=== PATIENT | male | born 1995 | race Caucasian/White ===

== ENCOUNTER 2018-05-26 06:28 | Emergency (ER) | payer OTHER ==
[~2018-05-26] VITALS: Ht 175.3 cm; Wt 99.7 kg
[2018-05-26 06:38] VITALS: TEMP 36.9; O2SAT 98; Ht 175.3 cm; Wt 99.7 kg
[2018-05-26 06:52] LABS: BASO % 0.7 %; BASO ABS # 0.04 K/uL (0-0.2); EOS % 2.2 %; EOS ABS # 0.12 K/uL (0-0.5); HEMATOCRIT 45.7 % (42-52); HEMOGLOBIN 16.1 g/dL (14.0-18.0); IG# 0.02 K/uL (0.00-0.02); LYMPH % 45.5 %; LYMPH ABS # 2.52 K/uL (1.2-3.4); MEAN CELL VOLUME 84.9 fL (80-100); MEAN CORPUSCULAR HEMOGLOBIN 29.9 pg (25-34); MEAN CORPUSCULAR HGB CONC 35.2 g/dl (32-36); MEAN PLATELET VOLUME 11.9 fL (7.4-10.4); MONO % 10.6 %; MONO ABS # 0.59 K/uL (0.11-0.59); NEUT % 40.6 %; NEUT ABS # 2.25 K/uL (1.4-6.5); PLATELET COUNT 183 K/uL (130-400); RED CELL DISTRIBUTION WIDTH CV 12.7 % (11.5-14.5); RED CELL DISTRIBUTION WIDTH SD 38.7 fL (36.4-46.3); WHITE BLOOD COUNT 5.54 K/uL (4.8-10.8)
[2018-05-26] MEDS ORDERED: KETOROLAC TROMETHAMINE 30 MG/ML VIAL IV STA (06:52)
[2018-05-26] MEDS ORDERED: ONDANSETRON INJ 2 MG/ML 2 ML VIAL IV STA (06:52)
[2018-05-26] MEDS ORDERED: SODIUM CHLORIDE 0.9% 1000ML 1,000 ML IV STA (06:52)
--- NOTE | 2018-05-26 06:58 | EMERGENCY ROOM VISIT NOTE ---
History Report prepared by Dao: Savage Dupree Under the Supervision of: Dr. Santo Leonard M.D. First contact with patient: 06:37 Chief Complaint: CHEST PAIN Stated Complaint: CHEST PAIN History of Present Illness The patient is a 22 year old male who presents to the Emergency Room with complaints of worsening chest pain that began 3 and a half hours ago. Patient states the pain is located in the center of his chest. He describes the pain as sharp and burning. He states the pain is an 8/10 in severity. He adds the pain is worsened when he lies down. Patient adds that he vomited this morning on his way to work. Patient denies a history of similar symptoms. He adds he felt fine prior to the symptoms coming on. 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 Patient denies a history of cancer, blood clots in his legs or lungs, and tick bites. He denies a family history of cardiac problems. Patient denies smoking and drug use. He adds he is a social drinker. Patient denies leg swelling, chills, recent colds, sore throat , cough, congestion, fevers, diarrhea, urinary symptoms, and abdominal pain. Source of History: patient Onset: 3 and a half hours ago Position: chest Symptom Intensity: 8/10 Quality: burning, sharp Timing: worsening Modifying Factors (Worsening): other (Lying down) Modifying Factors (Relieving): other (None) Associated Symptoms: + vomiting, No fevers, No chills, No sorethroat, No cough, No abdominal pain, No diarrhea, No urinary symptoms Note: Negative leg swelling, recent colds, and congestion. Review of Systems See HPI for pertinent positives and negatives. A total of ten systems were reviewed and were otherwise negative. Past Medical & Surgical Social History Problems: (1) Social alcohol use Family History Patient reports no known family medical history. Social History Smoking Status: Never Smoker Drug Use: none Occupation Status: employed Current/Historical Medications Scheduled Ondasetron Odt (Zofran Odt), 4 MG SL Q6H Scheduled PRN Ibuprofen Tab (Motrin), 800 MG PO Q8H PRN for Pain Allergies Coded Allergies: Sulfa Antibiotics (Verified Allergy, Unknown, SHORTNESS OF BREATH, 05/26/18 ) Physical Exam Vital Signs Date Time Temp Pulse Resp B/P (MAP) Pulse Ox O2 Delivery O2 Flow Rate FiO2 05/26/18 08:08 67 18 109/54 98 Room Air 05/26/18 07:09 68 18 128/76 98 Room Air 05/26/18 06:42 74 05/26/18 06:38 98 Room Air 05/26/18 06:38 98 Room Air 05/26/18 06:38 36.9 72 20 134/76 99 Room Air Physical Exam GENERAL: Awake, alert, uncomfortable, fatigued-appearing, in no distress HENT: Normocephalic, atraumatic. Oropharynx unremarkable. Mucous membranes are dry. EYES: Normal conjunctiva. Sclera non-icteric. NECK: Supple. No nuchal rigidity. FROM. No JVD. RESPIRATORY: Clear to auscultation. CARDIAC: Regular rate, normal rhythm. Extremities warm and well perfused. Pulses equal. ABDOMEN: Soft, non-distended. No tenderness to palpation. No rebound or guarding. No masses. RECTAL: Deferred. MUSCULOSKELETAL: Mild right anterior chest wall and sternal tenderness. Increased pain when lying supine. The back is symmetrical on inspection without obvious abnormality. There is no CVA tenderness to palpation. No joint edema. LOWER EXTREMITIES: Calves are equal size bilaterally and non-tender. No edema. No discoloration. NEURO: Normal sensorium. No sensory or motor deficits noted. SKIN: No rash or jaundice noted. Medical Decision & Procedures ER Provider Diagnostic Interpretation: Radiology results as stated below per my review and radiologist interpretation: CHEST ONE VIEW PORTABLE HISTORY: 22 years-old Male CHEST PAIN acute atypical chest pain COMPARISON: None available TECHNIQUE: Portable AP view of the chest FINDINGS: Cardiomediastinal and hilar silhouettes are within normal limits. No pneumothorax, pleural effusion, focal airspace consolidation or overt pulmonary edema. Bones of the chest appear grossly intact. IMPRESSION: No acute process. The above report was generated using voice recognition software. It may contain grammatical, syntax or spelling errors. Electronically signed by: Lorenzo Brooks M.D. 05/26/2018 7:14 AM Laboratory Results 05/26/18 06:11 Red Blood Count 5.38, Mean Corpuscular Volume 84.9, Mean Corpuscular Hemoglobin 29.9, Mean Corpuscular Hemoglobin Concent 35.2, Mean Platelet Volume 11.9, Neutrophils (%) (Auto) 40.6, Lymphocytes (%) (Auto) 45.5, Monocytes (%) (Auto) 10.6, Eosinophils (%) (Auto) 2.2, Basophils (%) (Auto) 0.7, Neutrophils # (Auto ) 2.25, Lymphocytes # (Auto) 2.52, Monocytes # (Auto) 0.59, Eosinophils # (Auto ) 0.12, Basophils # (Auto) 0.04 05/26/18 06:11 Test 05/26/18 06:11 White Blood Count 5.54 K/uL (4.8-10.8) Red Blood Count 5.38 M/uL (4.7-6.1) Hemoglobin 16.1 g/dL (14.0-18.0) Hematocrit 45.7 % (42-52) Mean Corpuscular Volume 84.9 fL (80-100) Mean Corpuscular Hemoglobin 29.9 pg (25-34) Mean Corpuscular Hemoglobin Concent 35.2 g/dl (32-36) Platelet Count 183 K/uL (130-400) Mean Platelet Volume 11.9 fL (7.4-10.4) Neutrophils (%) (Auto) 40.6 % Lymphocytes (%) (Auto) 45.5 % Monocytes (%) (Auto) 10.6 % Eosinophils (%) (Auto) 2.2 % Basophils (%) (Auto) 0.7 % Neutrophils # (Auto) 2.25 K/uL (1.4-6.5) Lymphocytes # (Auto) 2.52 K/uL (1.2-3.4) Monocytes # (Auto) 0.59 K/uL (0.11-0.59) Eosinophils # (Auto) 0.12 K/uL (0-0.5) Basophils # (Auto) 0.04 K/uL (0-0.2) RDW Standard Deviation 38.7 fL (36.4-46.3) RDW Coefficient of Variation 12.7 % (11.5-14.5) Immature Granulocyte % (Auto) 0.4 % Immature Granulocyte # (Auto) 0.02 K/uL (0.00-0.02) Anion Gap 11.0 mmol/L (3-11) Est Creatinine Clear Calc Drug Dose 132.4 ml/min Estimated GFR () 120.9 Estimated GFR (Non- 104.4 BUN/Creatinine Ratio 13.8 (10-20) Calcium Level 9.1 mg/dl (8.5-10.1) Total Bilirubin 0.5 mg/dl (0.2-1) Direct Bilirubin 0.1 mg/dl (0-0.2) Aspartate Amino Transf (AST/SGOT) 28 U/L (15-37) Alanine Aminotransferase (ALT/SGPT) 55 U/L (12-78) Alkaline Phosphatase 69 U/L (45-117) Troponin I < 0.015 ng/ml (0-0.045) Total Protein 7.6 gm/dl (6.4-8.2) Albumin 4.4 gm/dl (3.4-5.0) Lipase 98 U/L (73-393) Laboratory results reviewed by me Medications Administered Medications (Trade) Dose Ordered Sig/Dana Route Start Time Stop Time Status Last Admin Dose Admin Sodium Chloride 1,000 ml @ 999 mls/hr Q1H1M STAT IV 05/26/18 06:52 05/26/18 07:52 DC 05/26/18 07:11 999 MLS/HR Ketorolac Tromethamine (Toradol Inj) 15 mg NOW STAT IV 05/26/18 06:52 05/26/18 06:54 DC 05/26/18 07:11 15 MG Ondansetron HCl (Zofran Inj) 4 mg NOW STAT IV 05/26/18 06:52 05/26/18 06:54 DC 05/26/18 07:10 4 MG ECG Per My Interpretation Indication: chest pain Rate (beats per minute): 75 Rhythm: normal sinus Findings: no acute ischemic change, other (Normal axis) ED Course 0640: The patient was evaluated in room B2. A complete history and physical exam was performed. 0818: I reevaluated the patient. He states he is feeling better. Discussed results and discharge instructions. He verbalized understanding and agreement. The patient is ready for discharge. Medical Decision I reviewed the patient's past medical history, medications, and the nursing notes as described above. Differential diagnosis: Etiologies such as cardiac ischemia, aortic dissection, pulmonary embolism, pneumonia, pneumothorax, musculoskeletal, infections, pericarditis, myocarditis , esophageal rupture, gastrointestinal, as well as others were entertained. The patient is a 22-year-old gentleman previously healthy presents emergency department with acute onset substernal and right chest wall chest pain that began this morning around 4 AM with associated nausea and vomiting per hpi. On arrival the patient is uncomfortable but no acute distress, afebrile stable vital signs. EKG is unremarkable without ST elevations, MT depression. Negative Spodicks sign. Chest x-ray negative. WBC within normal limits. Troponin negative. Chemistry unremarkable without evidence of acidosis. Bedside echo negative for pericardial effusion. LV and RV size and function grossly normal. The patient feeling improved after IV fluids, Zofran, Toradol. Patient does report increased pain when lying flat he also has reproducible chest wall pain which is more suggestive of a costochondritis and less likely a pericarditis particularly given unremarkable EKG. Given his improvement with Toradol will continue to treat with NSAIDs. Plan for PCP follow-up. Findings and plan for follow-up reviewed with patient. Patient agreeable and d/c'd per discharge instructions. Medication Reconcilliation Current Medication List: was personally reviewed by me Blood Pressure Screening Patient's blood pressure: Normal blood pressure Blood pressure disposition: Did not require urgent referral Impression Primary Impression: Chest wall pain Scribe Attestation The scribe's documentation has been prepared under my direction and personally reviewed by me in its entirety. I confirm that the note above accurately reflects all work, treatment, procedures, and medical decision making performed by me. Departure Information Dispostion Home / Self-Care Prescriptions Ondasetron Odt (ZOFRAN ODT) 4 Mg Tab 4 MG SL Q6H for Nausea, #10 TAB Prov: Santo Leonard M.D. 05/26/18 Ibuprofen Tab (MOTRIN) 800 Mg Tab 800 MG PO Q8H Y for Pain for 7 Days, #21 TAB Prov: Santo Leonard M.D. 05/26/18 Patient Instructions ED Chest Pain Costochondritis, My [facility] Additional Instructions Please follow up with your primary care physician in the next week for re- evaluation. Your symptoms are most likely due to chest wall muscle strain/inflammation. Otherwise, your exam, EKG, chest xray, and lab results did not show signs of an emergent condition at this time. Acetaminophen or ibuprofen for pain and fevers as needed. Zofran as needed for nausea. Drink plenty of fluids to ensure hydration. Return to the emergency department for worsening symptoms as described in the accompanying instructions.
--- NOTE | 2018-05-26 07:16 | DIAGNOSTIC IMAGING REPORT ---
CHEST ONE VIEW PORTABLE HISTORY: 22 years-old Male CHEST PAIN acute atypical chest pain COMPARISON: None available TECHNIQUE: Portable AP view of the chest FINDINGS: Cardiomediastinal and hilar silhouettes are within normal limits. No pneumothorax, pleural effusion, focal airspace consolidation or overt pulmonary edema. Bones of the chest appear grossly intact. IMPRESSION: No acute process. The above report was generated using voice recognition software. It may contain grammatical, syntax or spelling errors. Electronically signed by: Lorenzo Brooks M.D. 05/26/2018 7:14 AM Dictated Date/Time: 05/26/2018 7:14 AM
[2018-05-26 07:17] LABS: ALBUMIN 4.4 gm/dl (3.4-5.0); ALKALINE PHOSPHATASE 69 U/L (45-117); ALT/SGPT 55 U/L (12-78); AST/SGOT 28 U/L (15-37); BLOOD UREA NITROGEN 14 mg/dl (7-18); CALCIUM 9.1 mg/dl (8.5-10.1); CARBON DIOXIDE 24 mmol/L (21-32); CREATININE 1.01 mg/dl (0.60-1.40); GLUCOSE 99 mg/dl (70-99); LIPASE 98 U/L (73-393); POTASSIUM 4.3 mmol/L (3.5-5.1); SODIUM 141 mmol/L (136-145); TOTAL PROTEIN 7.6 gm/dl (6.4-8.2)
[2018-05-26] MEDS ORDERED: IBUP-1451 PO (08:07)
[2018-05-26] MEDS ORDERED: ONDA4TAB10 SL (08:07)
[2018-05-26 08:08] VITALS: BP 109/54; PULSE 67; O2SAT 98
== END 2018-05-26 08:27 | disposition home or self-care (01) ==
LOC: C.EDB 06:33 → EDBD 06:33 → C.EDB 08:27
DX: R07.89 Other chest pain (principal)